=== PATIENT | female | born 1965 | race Caucasian/White ===

== ENCOUNTER 2021-02-27 | Inpatient (IN) | payer OTHER, SELFPAY ==
[2021-02-27 00:18] VITALS: BP 157/84; PULSE 86; RESP 18; TEMP 36.6; O2SAT 99
--- NOTE | 2021-02-27 00:50 | PC.ADMIT ---
55 year old female presented to [facility] via stretcher on a CV from [facility] at 00:15 for increased manic symptoms, erractic behavior and bizarre thinking. Alert, oriented to self, place and situation. Chief complaint, I'm here because there are several Dopplegangers out there to get me. Also, because I'm on a little bit of Depakote. Patient prefers to be called, Grisel at all times. She presents paranoid, hyperverbal, tangential, but pleasant with interview. 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 History of Bipolar with psychotic features and aggression. No medical history reported. is concerned with patient's behavior at home stating that his is not safe to return home as she is experiencing hallucinations. Patient has a history of impulsive behaviors such as excessive spending of money, leaving home to stay in hotels, walking the streets and having thoughts that are not realistic in nature. Denies any medication, snowden or valuables of any kind on arrival. Denies current HI/SI, intent, plan. Denies AVH. Denies pain/discomfort. Oriented to unit, food and beverages offered. Cooperative with current plan of care. Admission orders and medications initiated by provider continuous improvement director. Contracts for safety. Agrees to come to staff with needs/concerns.
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
[2021-02-27 06:54] VITALS: PULSE 73; RESP 20; TEMP 36.6; O2SAT 98
--- NOTE | 2021-02-27 08:20 | PHA.MEDREC ---
Pharmacy Consult ? Medication Reconciliation Nursing has completed the medication reconciliation and Pharmacy has reviewed the medications.
[2021-02-27 09:36] VITALS: BP 107/62; PULSE 68; RESP 14; TEMP 36.4; O2SAT 98
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
--- NOTE | 2021-02-27 11:05 | PC.NURSE ---
pt was assisted to make a phone call to [facility]. message left.
--- NOTE | 2021-02-27 11:07 | PC.NURSE ---
does not want flu shot.
[2021-02-27 18:00] VITALS: BP 118/74; PULSE 68; RESP 16; TEMP 35.8; O2SAT 99
[2021-02-27] MEDS: Divalproex Sodium ER 500 MG TAB.ER.24H PO (19:38)
[2021-02-27] MEDS: HaloperidoL 1 MG TABLET 2 MG PO (19:39)
[2021-02-27] MEDS: traZODone HCL 25 MG HALFTAB PO (19:42)
--- NOTE | 2021-02-27 22:41 | PC.NURSE ---
Pt reported feeling angry. Pt requested personal space. Staff let pt into a group room and offered her a stress object. Pt destroyed the stress ball.
[2021-02-28] MEDS: Acetaminophen 325 MG TABLET 650 MG PO (00:56)
[2021-02-28] MEDS: HaloperidoL 1 MG TABLET PO ×2 (01:19→18:30)
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
[2021-02-28 06:00] VITALS: BP 127/87; PULSE 72; RESP 18; TEMP 36.6; O2SAT 98
--- NOTE | 2021-02-28 17:44 | P.PNPSI_ITS ---
Subjective Subjective Date of Service: 02/28/21 Reason For Visit: Bipolar 1 disorder Medical Problems Affecting Mental Status: No Interim History: presents as elated. Hyperverbal and tangential and flight of ideas. for today she is, poor boundaries and intrusive. Gave medical technical writer a card with lipstick on it. She talked about many topics including racquetball, going to [place], [place] . Her main complaint was some urinary incontinence and we discussed oxybutynin dosing. Has been paranoid with her roommate. Medications just been restarted and she denied any issues or complaints around same Medication Compliance: Yes Side effects from medications: No Attending Groups: Yes Review of Systems Acute medical concerns: No Review of Systems Review of Systems unremarkable Mental Status Exam Mental Status Exam Narrative: pleasant. Intrusive. Flirtatious. Hyperverbal flight of ideas. Elated. 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 No evidence of SI or HI. Insight and judgment is limited Diagnostics Vital Signs (24Hr): Vital Signs - 24 hr 02/27/21 18:00 02/28/21 06:00 Temperature 96.4 F L 97.9 F Pulse Rate 68 72 Respiratory Rate 16 18 Blood Pressure 118/74 127/87 Pulse Oximetry 99 98 Medications Medications Current Medications Acetaminophen (Acetaminophen 325 Mg Tablet) 650 mg PO Q6H PRN PRN Reason: Headache/Pain Mild Scale (1-3) Last Admin: 02/28/21 00:56 Dose: 650 mg Documented by: Al Hydroxide/Mg Hydroxide (Magnesium Hydrox/Alum Hydrox 30 Ml Oral.Susp) 30 ml PO Q6H PRN PRN Reason: Heartburn/Nausea Divalproex Sodium (Divalproex Sodium Er 250 Mg Tab.Er.24h) 750 mg PO BEDTIME YAHAIRA Haloperidol (Haloperidol 1 Mg Tablet) 2 mg PO BEDTIME YAHAIRA Last Admin: 02/27/21 19:39 Dose: 2 mg Documented by: Haloperidol (Haloperidol 1 Mg Tablet) 1 mg PO Q4H PRN PRN Reason: agitation or psychosis Last Admin: 02/28/21 01:19 Dose: 1 mg Documented by: Lorazepam (Lorazepam 0.5 Mg Tablet) 0.5 mg PO Q8H PRN PRN Reason: anxiety Magnesium Hydroxide (Milk Of Magnesia 30 Ml Oral.Susp) 30 ml PO DAILY PRN PRN Reason: Constipation Oxybutynin Chloride (Oxybutynin Chloride Er 5 Mg Tab.Er.24) 15 mg PO DAILY YAHAIRA Trazodone HCl (Trazodone Hcl 25 Mg Halftab) 25 mg PO BEDTIME PRN PRN Reason: Insomnia Last Admin: 02/27/21 19:42 Dose: 25 mg Documented by: Allergies Allergies Allergy/AdvReac Type Severity Reaction Status Date / Time hydroxyzine [From Vistaril] Allergy Unknown unknown- Verified 02/26/21 23:54 [facility] risperidone [From Risperdal] Allergy Unknown unknown- Verified 02/26/21 23:54 [facility] ziprasidone [From Geodon] Allergy Unknown unknown- Verified 02/26/21 23:54 [facility] Assessment & Plan Assessment & Plan (1) Bipolar I disorder with tonya: Status: Acute Code(s): F31.10 - Bipolar disorder, current episode manic without psychotic features, unspecified Assessment and Plan: IMPRESSION: Patient is a 55-year-old female with history of bipolar disorder who presents after called 911 for patient in the face of going off her meds for the past month and a half and becoming dysregulated and disorganized. Patient is manic, dancing around, transitioning from overly friendly to suspicious and with pressured speech and paranoid ideations that people are dopple gangers. Patient's present and says patient decompensated after going off her medications a month and half ago. He confirms that medications and doses of both Depakote and Haldol. Patient is willing to restart her medications PLAN: Patient on CV Q 15 minutes checks Depakote 5 ER 500 mg q.h.s. tonight and then increase to 750 mg at bedtime which is her home dose Haldol 2 mg at bedtime(home dose) Oxybutynin Director Of Market Intelligence reviewed labs from emergence room that sent patient: -CBC, LFTs, electrolytes, BUN creatinine: all WNL -will schedule follow-up labs for Depakote level 02/28/2021: No changes to current plan is just restarted on medications. There will be a Depakote level and likely adjustment to higher dose at bedtime as detailed above I spent minutes with the patient and/or on the patient floor today, greater than?50% of which was spent counseling/coordinating care. Reason for contiued inpatient stay Substantial Risk for: inability to function
[2021-02-28 18:00] VITALS: BP 142/77; PULSE 84; RESP 16; TEMP 36.6; O2SAT 99
[2021-02-28] MEDS: LORazepam 0.5 MG TABLET PO (18:30)
[2021-02-28] MEDS: Divalproex Sodium ER 250 MG TAB.ER.24H 750 MG PO (20:20)
[2021-02-28] MEDS: HaloperidoL 1 MG TABLET 2 MG PO (20:20)
[2021-03-01 06:00] VITALS: BP 120/88; PULSE 78; RESP 18; TEMP 36.3; O2SAT 97
--- NOTE | 2021-03-01 12:25 | HO.PSYCHPN ---
Subjective Subjective Date of Service: 03/01/21 Reason For Visit: Bipolar 1 disorder Medical Problems Affecting Mental Status: No Interim History: Pleasant today. Is slightly less intrusive and flirtatious today. Speech less pressured. More organized. Sleep better. Still appears elated. Reports he is now back to calling herself Deann.. Reports that her has been supportive and she feels less scared and does not feel that there are people out to kill her people in person meeting each other. Thankful for increased oxybutynin and reports this has been helpful. just been restarted and she denied any issues or complaints around same Medication Compliance: Yes Side effects from medications: No Attending Groups: Yes Review of Systems Acute medical concerns: No Review of Systems Review of Systems unremarkable Mental Status Exam Mental Status Exam Narrative: Pleasant today. Is slightly less intrusive and flirtatious today. Speech less pressured. More organized. Still appears elated. No evidence of SI or HI. Insight and judgment improving Diagnostics Vital Signs (24Hr): Vital Signs - 24 hr 02/28/21 18:00 03/01/21 06:00 Temperature 97.8 F 97.4 F Pulse Rate 84 78 Respiratory Rate 16 18 Blood Pressure 142/77 H 120/88 Pulse Oximetry 99 97 Medications Medications Current Medications Acetaminophen (Acetaminophen 325 Mg Tablet) 650 mg PO Q6H PRN PRN Reason: Headache/Pain Mild Scale (1-3) Last Admin: 02/28/21 00:56 Dose: 650 mg Documented by: Al Hydroxide/Mg Hydroxide (Magnesium Hydrox/Alum Hydrox 30 Ml Oral.Susp) 30 ml PO Q6H PRN PRN Reason: Heartburn/Nausea Divalproex Sodium (Divalproex Sodium Er 250 Mg Tab.Er.24h) 750 mg PO BEDTIME YAHAIRA Last Admin: 02/28/21 20:20 Dose: 750 mg Documented by: Haloperidol (Haloperidol 1 Mg Tablet) 2 mg PO BEDTIME YAHAIRA Last Admin: 02/28/21 20:20 Dose: 2 mg Documented by: Haloperidol (Haloperidol 1 Mg Tablet) 1 mg PO Q4H PRN PRN Reason: agitation or psychosis Last Admin: 02/28/21 18:30 Dose: 1 mg Documented by: Lorazepam (Lorazepam 0.5 Mg Tablet) 0.5 mg PO Q8H PRN PRN Reason: anxiety Last Admin: 02/28/21 18:30 Dose: 0.5 mg Documented by: Magnesium Hydroxide (Milk Of Magnesia 30 Ml Oral.Susp) 30 ml PO DAILY PRN PRN Reason: Constipation Oxybutynin Chloride (Oxybutynin Chloride Er 5 Mg Tab.Er.24) 15 mg PO DAILY YAHAIRA Last Admin: 03/01/21 08:42 Dose: 15 mg Documented by: Trazodone HCl (Trazodone Hcl 25 Mg Halftab) 25 mg PO BEDTIME PRN PRN Reason: Insomnia Last Admin: 02/27/21 19:42 Dose: 25 mg Documented by: Allergies Allergies Allergy/AdvReac Type Severity Reaction Status Date / Time hydroxyzine [From Vistaril] Allergy Unknown unknown- Verified 02/26/21 23:54 [facility] risperidone [From Risperdal] Allergy Unknown unknown- Verified 02/26/21 23:54 [facility] ziprasidone [From Geodon] Allergy Unknown unknown- Verified 02/26/21 23:54 [facility] Assessment & Plan Assessment & Plan (1) Bipolar I disorder with tonya: Status: Acute Code(s): F31.10 - Bipolar disorder, current episode manic without psychotic features, unspecified Assessment and Plan: IMPRESSION: Patient is a 55-year-old female with history of bipolar disorder who presents after called 911 for patient in the face of going off her meds for the past month and a half and becoming dysregulated and disorganized. Patient is manic, dancing around, transitioning from overly friendly to suspicious and with pressured speech and paranoid ideations that people are dopple gangers. Patient's present and says patient decompensated after going off her medications a month and half ago. He confirms that medications and doses of both Depakote and Haldol. Patient is willing to restart her medications PLAN: Patient on CV Q 15 minutes checks Depakote 5 ER 500 mg q.h.s. tonight and then increase to 750 mg at bedtime which is her home dose Haldol 2 mg at bedtime(home dose) Oxybutynin Operator Coating Furnace reviewed labs from emergence room that sent patient: -CBC, LFTs, electrolytes, BUN creatinine: all WNL -will schedule follow-up labs for Depakote level 03/01/2021: No changes to current plan is just restarted on medications- showing some improvement. There will be a Depakote level and may be adjusting to higher dose at bedtime as detailed above I spent minutes with the patient and/or on the patient floor today, greater than?50% of which was spent counseling/coordinating care. Reason for contiued inpatient stay Substantial Risk for: inability to function and rapid decompensation
[2021-03-01 17:18] VITALS: BP 128/73; PULSE 80; RESP 16; TEMP 36.9; O2SAT 99
[2021-03-01] MEDS: Divalproex Sodium ER 250 MG TAB.ER.24H 750 MG PO (19:45)
[2021-03-01] MEDS: HaloperidoL 1 MG TABLET 2 MG PO (19:45)
[2021-03-01] MEDS: LORazepam 0.5 MG TABLET PO (21:10)
[2021-03-02 06:00] VITALS: BP 114/75; PULSE 94; TEMP 36.4; O2SAT 97
--- NOTE | 2021-03-02 12:01 | HO.PSYCHPN ---
Subjective Subjective Date of Service: 03/02/21 Reason For Visit: Bipolar 1 disorder Interim History: pt reports that she's doing well and back to her normal self. She says she's sleeping well and would like to dc tomorrow. She reports that she is no longer concerned about Dopplegangers, which was a prominent, paranoid delusion on admission. She also volunteers that when she first came in she was a little weird.. and apologized for her behaviors. Patient said the past few weeks have been stressful as she and are in process of moving to [place] and that her had an [place] recently. She says she went off her meds last month because she does not believe that medications will heal the root cause of [her] mental illness. She says she knows she needs medications now, but thinks that she will likely be able to go off them in the future and cites that her was once schizophrenic on medications, but that this resolved and he has not needed meds for 15 years. Pt also talks about the healing that comes through Nikolas as a way to resolve bipolar; she agrees that this would be a miracle however and says i know i need medications now and agrees to continue taking medications. She denies any SI or HI. She again says she wants to dc tomorrow but is willing to have her weigh in. of note, pt remains mildly manic, dancing in the hallway, but easily redirected. Mental Status Exam Mental Status Exam Narrative: Pt is alert and oriented; behavior is still a little animated but less so; overly friendly but not intrusive; cooperative; dressed in casual attire, appropriate; adequate hygiene and appropriately groomed; mood is described as good; affect appropriate; eye contact appropriate; Speech not pressured, regular rate, volume, prosody; no psychomotor agitation; thought process is linear and goal oriented; Thought content is on discharge; mildly grandiose; no delusional content or paranoid ideations; denies any SI/HI; no AVH. Patients insight and judgment are impaired but improved. Diagnostics Vital Signs (24Hr): Vital Signs - 24 hr 03/01/21 17:18 03/02/21 06:00 Temperature 98.5 F 97.6 F Pulse Rate 80 94 Respiratory Rate 16 Blood Pressure 128/73 114/75 Pulse Oximetry 99 97 Medications Medications Current Medications Acetaminophen (Acetaminophen 325 Mg Tablet) 650 mg PO Q6H PRN PRN Reason: Headache/Pain Mild Scale (1-3) Last Admin: 02/28/21 00:56 Dose: 650 mg Documented by: Al Hydroxide/Mg Hydroxide (Magnesium Hydrox/Alum Hydrox 30 Ml Oral.Susp) 30 ml PO Q6H PRN PRN Reason: Heartburn/Nausea Divalproex Sodium (Divalproex Sodium Er 500 Mg Tab.Er.24h) 1,000 mg PO BEDTIME YAHAIRA Haloperidol (Haloperidol 1 Mg Tablet) 2 mg PO BEDTIME YAHAIRA Last Admin: 03/01/21 19:45 Dose: 2 mg Documented by: Haloperidol (Haloperidol 1 Mg Tablet) 1 mg PO Q4H PRN PRN Reason: agitation or psychosis Last Admin: 02/28/21 18:30 Dose: 1 mg Documented by: Lorazepam (Lorazepam 0.5 Mg Tablet) 0.5 mg PO Q8H PRN PRN Reason: anxiety Last Admin: 03/01/21 21:10 Dose: 0.5 mg Documented by: Magnesium Hydroxide (Milk Of Magnesia 30 Ml Oral.Susp) 30 ml PO DAILY PRN PRN Reason: Constipation Oxybutynin Chloride (Oxybutynin Chloride Er 5 Mg Tab.Er.24) 15 mg PO DAILY YAHAIRA Last Admin: 03/02/21 08:15 Dose: 15 mg Documented by: Trazodone HCl (Trazodone Hcl 25 Mg Halftab) 25 mg PO BEDTIME PRN PRN Reason: Insomnia Last Admin: 02/27/21 19:42 Dose: 25 mg Documented by: Allergies Allergies Allergy/AdvReac Type Severity Reaction Status Date / Time hydroxyzine [From Vistaril] Allergy Unknown unknown- Verified 02/26/21 23:54 [facility] risperidone [From Risperdal] Allergy Unknown unknown- Verified 02/26/21 23:54 [facility] ziprasidone [From Geodon] Allergy Unknown unknown- Verified 02/26/21 23:54 [facility] Assessment & Plan Assessment & Plan (1) Bipolar I disorder with tonya: Status: Acute Code(s): F31.10 - Bipolar disorder, current episode manic without psychotic features, unspecified Assessment and Plan: IMPRESSION: Patient is a 55-year-old female with history of bipolar disorder who presents after called 911 for patient in the face of going off her meds for the past month and a half and becoming dysregulated and disorganized. Patient is manic, dancing around, transitioning from overly friendly to suspicious and with pressured speech and paranoid ideations that people are dopple gangers. Patient's present and says patient decompensated after going off her medications a month and half ago. He confirms that medications and doses of both Depakote and Haldol. pt improved on depakote and Haldol; remains hypomanic. She denies SI/HI and behaviors are safe. Insight and judgment are improved, however she is not at baseline according to and her insight remains impaired as she is ambivalent about her need for medications. Will include . PLAN: Patient on CV Q 15 minutes checks Depakote ER 750 mg q.h.s. Haldol 2 mg at bedtime(home dose) Oxybutynin Stock Parts Inspector reviewed labs from emergence room that sent patient: -CBC, LFTs, electrolytes, BUN creatinine: all WNL -Depakote level pending I spent minutes with the patient and/or on the patient floor today, greater than?50% of which was spent counseling/coordinating care. Reason for contiued inpatient stay Substantial Risk for: med/psych decompensation
[2021-03-02] MEDS: LORazepam 0.5 MG TABLET PO (22:00)
[2021-03-02] MEDS: HaloperidoL 1 MG TABLET 2 MG PO (22:00)
[2021-03-02] MEDS: Divalproex Sodium ER 250 MG TAB.ER.24H 750 MG PO (22:01)
[2021-03-02] MEDS: HaloperidoL 1 MG TABLET PO (23:38)
[2021-03-03] MEDS: HaloperidoL 1 MG TABLET PO ×2 (03:05→23:33)
--- NOTE | 2021-03-03 03:05 | PC.NURSE ---
Patient is awake at 3am requesting Haldol for a negative voice in my head. and it helps me sleep. Patient is noted to have yelled out twice earlier in the evening while sleeping.
[2021-03-03 06:00] VITALS: BP 120/76; PULSE 120; RESP 18; TEMP 36.3; O2SAT 95
[2021-03-03 08:42] LABS: Ammonia 32 umol/L (13-55)
[2021-03-03 09:16] LABS: Alanine Aminotransferase 20 U/L (0-31); Albumin Level 4.2 g/dL (3.5-5.0); Alkaline Phosphatase 88 U/L (39-117); Aspartate Amino Transferase 20 U/L (5-31); Bilirubin Direct 0.2 mg/dL (0.0-0.5); Bilirubin Total 0.4 mg/dL (0.0-1.0); Total Protein 6.5 g/dL (6.5-8.0)
[2021-03-03 09:30] LABS: Valproate 56.3 mcg/mL (50.0-100.0)
--- NOTE | 2021-03-03 09:40 | PM.PSYDC ---
DS: Providers Provider Date of Service: 03/05/21 Date of admission: 02/26/21 23:43 Date of discharge: 03/05/21 Primary care physician: Unknown Physician Attending physician on admission: Dio Quinn Consults: 02/27/21 09:51 Consult to Hospitalist Routine Consulting Provider: Hospitalist Reason For Exam: admission physical 03/02/21 09:58 Consult to Hospitalist Routine Consulting Provider: Hospitalist Reason For Exam: admission physical (pt admitted on 02/27/21) Attending physician on discharge: Dio Quinn DS: Diagnosis Discharge Diagnosis (1) Bipolar I disorder with tonya: Status: Acute DS: Medications Discharge Medications Home Medications: Home Medications Medication Instructions Recorded Confirmed oxybutynin chloride 10 mg 10 mg PO DAILY 02/26/21 02/26/21 tablet,extended release 24 hr Previous Rx's Medication Instructions Recorded divalproex 250 mg tablet,extended 750 mg PO BEDTIME 30 Days #90 tab 03/03/21 release 24 hr haloperidol 2 mg tablet 2 mg PO BEDTIME 30 Days #30 tab 03/03/21 trazodone 50 mg tablet 25 mg PO BEDTIME PRN 30 Days #15 03/03/21 tab Data Data Completed and Pending Completed studies during hospitalization [Text1]: 03/03/21 03/03/21 07:57 07:57 Total Bilirubin 0.4 Direct Bilirubin 0.2 AST 20 ALT 20 Alkaline Phosphatase 88 Ammonia 32 Total Protein 6.5 Albumin 4.2 Valproic Acid 56.3 DS: Summary Status at Discharge Functional status at discharge: independent ambulation Overall status at discharge: patient is progressing back to baseline Time Spent with Patient Time attestation: Total time spent providing and/or coordinating discharge services: Discharge Plan Discharge Patient Disposition: Home, Self-Care Discharge Diagnosis: Bipolar Type 1, recurrent, most recent episode manic, in partial remission Referrals: Physician,Unknown J [Primary Care Provider] - 1 Week Discharge Medications: New divalproex 250 mg Tablet Extended Release 24 Hr 750 mg PO BEDTIME 30 Days Qty: 90 RF: 0 Continued oxybutynin chloride 10 mg tablet extended release 24hr 10 mg PO DAILY RF: 0 haloperidol 2 mg Tablet 2 mg PO BEDTIME 30 Days Qty: 30 RF: 0 Changed trazodone 50 mg tablet 25 mg PO BEDTIME PRN (Reason: Insomnia) 30 Days Qty: 15 RF: 0 Discontinued divalproex 500 mg tablet extended release 24 hr 2 tab PO BEDTIME RF: 0 Diet: regular diet Activity on Discharge: As tolerated Stand Alone Forms: Patient Portal Discharge page Care Plan Goals: Maintain mood and safe behaviors Take medications as prescribed Practice coping skills Continue with outpatient providers and reach out to them as needed Health Concerns: Mood stability and behaviors Plan of Treatment: Follow up with your psychiatric provider and other outpatient providers regarding above concerns Take medications as prescribed Assessment: Risk assessment at time of discharge:? Patient was interviewed prior to discharge and found to be fully oriented and without any SI or HI. Patient has insight and demonstrates good judgment in terms of wanting to pursue treatment. Patient is not in imminent risk of harm to self or others and has a safety plan that includes presenting to the closest ER or calling 911 if feeling unsafe.? Patient has been observed closely by nursing and unit staff throughout admission; patient has not engaged in any behaviors that suggest dangerousness to self or others and has demonstrated appropriate behaviors and impulse control
[2021-03-03] MEDS: Magnesium Hydrox/Alum Hydrox 30 ML ORAL.SUSP PO (16:36)
--- NOTE | 2021-03-03 17:57 | P.EN_ITS ---
Event Note Date of Service: 03/03/21 Event Note: I went to [facility] for requested hospitalist consult/H+P. The patient r equested female provider. I reviewed the pt's documented trauma history and out of respect for that, will defer H+P until a female provider is available.
--- NOTE | 2021-03-03 17:57 | PM.EVENT ---
Event Note Date of Service: 03/03/21 Event Note: I went to for requested hospitalist consult/H+P. The patient requested female provider. I reviewed the pt's documented trauma history and out of respect for that, will defer H+P until a female provider is available.
[2021-03-03 18:00] VITALS: BP 132/67; PULSE 93; TEMP 37.3; O2SAT 98
--- NOTE | 2021-03-03 20:22 | P.PNPSI_ITS ---
Subjective Subjective Date of Service: 03/03/21 Reason For Visit: Bipolar 1 disorder Interim History: pt remains mildly manic; dancing in hallway, gave telegraphic typewriter operator a picture of flower with references to Nikolas. Her reports that she is still paranoid but just hiding it from staff. Pt's came to unit and encouraged pt to remain on unit another few days and increase her Depakote back to her home dose of 1000mg to which she agrees. Mental Status Exam Mental Status Exam Narrative: Pt is alert and oriented; behavior is still a little animated but less so; overly friendly but not intrusive; cooperative; dressed in casual attire, appropriate; adequate hygiene and appropriately groomed; mood is described as good; affect appropriate; eye contact appropriate; Speech not pressured, regular rate, volume, prosody; no psychomotor agitation; thought process is linear and goal oriented; Thought content is on discharge; mildly grandiose; no delusional content or paranoid ideations; denies any SI/HI; no AVH.? Patients insight and judgment are impaired but improved.? Diagnostics Vital Signs (24Hr): Vital Signs - 24 hr 03/03/21 06:00 03/03/21 18:00 Temperature 97.3 F 99.2 F Pulse Rate 120 H 93 Respiratory Rate 18 Blood Pressure 120/76 132/67 Pulse Oximetry 95 98 Labs Labs: Laboratory Results - last 48 hr 03/03/21 03/03/21 07:57 07:57 Total Bilirubin 0.4 Direct Bilirubin 0.2 AST 20 ALT 20 Alkaline Phosphatase 88 Ammonia 32 Total Protein 6.5 Albumin 4.2 Valproic Acid 56.3 Medications Medications Current Medications Acetaminophen (Acetaminophen 325 Mg Tablet) 650 mg PO Q6H PRN PRN Reason: Headache/Pain Mild Scale (1-3) Last Admin: 02/28/21 00:56 Dose: 650 mg Documented by: Al Hydroxide/Mg Hydroxide (Magnesium Hydrox/Alum Hydrox 30 Ml Oral.Susp) 30 ml PO Q6H PRN PRN Reason: Heartburn/Nausea Last Admin: 03/03/21 16:36 Dose: 30 ml Documented by: Divalproex Sodium (Divalproex Sodium Er 500 Mg Tab.Er.24h) 1,000 mg PO BEDTIME YAHAIRA Haloperidol (Haloperidol 1 Mg Tablet) 2 mg PO BEDTIME YAHAIRA Last Admin: 03/02/21 22:00 Dose: 2 mg Documented by: Haloperidol (Haloperidol 1 Mg Tablet) 1 mg PO Q4H PRN PRN Reason: agitation or psychosis Last Admin: 03/03/21 03:05 Dose: 1 mg Documented by: Lorazepam (Lorazepam 0.5 Mg Tablet) 0.5 mg PO Q8H PRN PRN Reason: anxiety Last Admin: 03/02/21 22:00 Dose: 0.5 mg Documented by: Magnesium Hydroxide (Milk Of Magnesia 30 Ml Oral.Susp) 30 ml PO DAILY PRN PRN Reason: Constipation Oxybutynin Chloride (Oxybutynin Chloride Er 5 Mg Tab.Er.24) 15 mg PO DAILY YAHAIRA Last Admin: 03/03/21 08:07 Dose: 15 mg Documented by: Trazodone HCl (Trazodone Hcl 25 Mg Halftab) 25 mg PO BEDTIME PRN PRN Reason: Insomnia Last Admin: 02/27/21 19:42 Dose: 25 mg Documented by: Allergies Allergies Allergy/AdvReac Type Severity Reaction Status Date / Time hydroxyzine [From Vistaril] Allergy Unknown unknown- Verified 02/26/21 23:54 [facility] risperidone [From Risperdal] Allergy Unknown unknown- Verified 02/26/21 23:54 [facility] ziprasidone [From Geodon] Allergy Unknown unknown- Verified 02/26/21 23:54 [facility] Assessment & Plan Assessment & Plan (1) Bipolar I disorder with tonya: Status: Acute Code(s): F31.10 - Bipolar disorder, current episode manic without psychotic features, unspecified Assessment and Plan: IMPRESSION: Patient is a 55-year-old female with history of bipolar disorder who presents after called 911 for patient in the face of going off her meds for the past month and a half and becoming dysregulated and disorganized. Patient is manic, dancing around, transitioning from overly friendly to suspicious and with pressured speech and paranoid ideations that people are dopple gangers. Patient's present and says patient decompensated after going off her medications a month and half ago. He confirms that medications an d doses of both Depakote and Haldol. pt improved on depakote and Haldol; remains hypomanic. She denies SI/HI and behaviors are safe. Insight and judgment are improved, however she is not at baseline according to and her insight remains impaired as she is ambivalent about her need for medications. however convinced pt to remain on unit and start taking home dose of depakote to whch she agreed; she says she will rescind her 3 day PLAN: Patient on CV (rescinds 3 day) Q 15 minutes checks Depakote ER 1000 mg q.h.s. Haldol 2 mg at bedtime(home dose) Oxybutynin Assembly Worker reviewed labs from emergence room that sent patient: -CBC, LFTs, electrolytes, BUN creatinine: all WNL -Depakote level pending I spent minutes with the patient and/or on the patient floor today, greater than?50% of which was spent counseling/coordinating care. Reason for contiued inpatient stay Substantial Risk for: med/psych decompensation
[2021-03-03] MEDS: traZODone HCL 25 MG HALFTAB PO (22:02)
[2021-03-03] MEDS: Divalproex Sodium ER 500 MG TAB.ER.24H 1000 MG PO (22:03)
[2021-03-03] MEDS: HaloperidoL 1 MG TABLET 2 MG PO (22:03)
[2021-03-04 06:00] VITALS: BP 134/72; PULSE 88; RESP 18; TEMP 36.2; O2SAT 98
--- NOTE | 2021-03-04 09:52 | HO.PSYCHPN ---
Subjective Subjective Date of Service: 03/04/21 Reason For Visit: Bipolar 1 disorder Interim History: Patient reports that she was very triggered last night hearing male patient's arguing and then hearing loud nursing staff which is next to her room. She said she woke up furious. However she also felt her PTSD triggered by the loud male voices. Patient also said that she was struggling either with a dream or a diluted thought that her father is in the illuminati and that she is actually the daughter of the dark Lord Lino, a character from the plastics heat welder Wars. Patient was talking in a singsong the way and gave contract technical writer another picture of a flower and then scriptures about Nikolas. Patient said she talked to her and they both agreed she should stay longer and increase Haldol. At 1st contract technical writer considered and discussed a medication for feeling excessively triggered but patient did not want to try either clonidine or prazosin; given patient's continued delusional content and her reported history that she has required higher doses of Haldol in the past, contract technical writer agreed to increase to 4 mg at bedtime. Customer Service Voice discussed risks/side effects of increased Haldol dose to which patient said she is well aware and is fine with. Patient shared that the week she got last March she had a 5 day manic episode where she thought her roommate was a Warlock; patient was still able to work during this time however was extremely paranoid about this and said it was resolved by taking higher doses of Haldol. Mental Status Exam Mental Status Exam Narrative: Pt is alert and oriented; behavior is still a little animated but less so; overly friendly but not intrusive; cooperative; dressed in casual attire, appropriate; adequate hygiene and appropriately groomed; mood is described as good; affect appropriate; eye contact appropriate; Speech a little pressured;, regular volume, prosody; some psychomotor agitation; thought process is linear and goal oriented but can be circumstantial as well; Thought content is on mildly grandiose with some continued delusional content; denies any SI/HI; denies AVH.? Patients insight and judgment are impaired (though improved from admission).? Diagnostics Vital Signs (24Hr): Vital Signs - 24 hr 03/03/21 18:00 03/04/21 06:00 Temperature 99.2 F 97.2 F Pulse Rate 93 88 Respiratory Rate 18 Blood Pressure 132/67 134/72 Pulse Oximetry 98 98 Labs Labs: Laboratory Results - last 48 hr 03/03/21 03/03/21 07:57 07:57 Total Bilirubin 0.4 Direct Bilirubin 0.2 AST 20 ALT 20 Alkaline Phosphatase 88 Ammonia 32 Total Protein 6.5 Albumin 4.2 Valproic Acid 56.3 Medications Medications Current Medications Acetaminophen (Acetaminophen 325 Mg Tablet) 650 mg PO Q6H PRN PRN Reason: Headache/Pain Mild Scale (1-3) Last Admin: 02/28/21 00:56 Dose: 650 mg Documented by: Al Hydroxide/Mg Hydroxide (Magnesium Hydrox/Alum Hydrox 30 Ml Oral.Susp) 30 ml PO Q6H PRN PRN Reason: Heartburn/Nausea Last Admin: 03/03/21 16:36 Dose: 30 ml Documented by: Divalproex Sodium (Divalproex Sodium Er 500 Mg Tab.Er.24h) 1,000 mg PO BEDTIME YAHAIRA Last Admin: 03/03/21 22:03 Dose: 1,000 mg Documented by: Haloperidol (Haloperidol 1 Mg Tablet) 2 mg PO BEDTIME YAHAIRA Last Admin: 03/03/21 22:03 Dose: 2 mg Documented by: Haloperidol (Haloperidol 1 Mg Tablet) 1 mg PO Q4H PRN PRN Reason: agitation or psychosis Last Admin: 03/03/21 23:33 Dose: 1 mg Documented by: Magnesium Hydroxide (Milk Of Magnesia 30 Ml Oral.Susp) 30 ml PO DAILY PRN PRN Reason: Constipation Oxybutynin Chloride (Oxybutynin Chloride Er 5 Mg Tab.Er.24) 20 mg PO DAILY YAHAIRA Last Admin: 03/04/21 08:06 Dose: 20 mg Documented by: Trazodone HCl (Trazodone Hcl 25 Mg Halftab) 25 mg PO BEDTIME PRN PRN Reason: Insomnia Last Admin: 03/03/21 22:02 Dose: 25 mg Documented by: Allergies Allergies Allergy/AdvReac Type Severity Reaction Status Date / Time hydroxyzine [From Vistaril] Allergy Unknown unknown- Verified 02/26/21 23:54 [facility] risperidone [From Risperdal] Allergy Unknown unknown- Verified 02/26/21 23:54 [facility] ziprasidone [From Geodon] Allergy Unknown unknown- Verified 02/26/21 23:54 [facility] Assessment & Plan Assessment & Plan (1) Bipolar I disorder with otnya: Status: Acute Code(s): F31.10 - Bipolar disorder, current episode manic without psychotic features, unspecified Assessment and Plan: IMPRESSION: Patient is a 55-year-old female with history of bipolar disorder who presents after called 911 for patient in the face of going off her meds for the past month and a half and becoming dysregulated and disorganized. Patient is manic, dancing around, transitioning from overly friendly to suspicious and with pressured speech and paranoid ideations that people are dopple gangers. Patient's present and says patient decompensated after going off her medications a month and half ago. He confirms that medications and doses of both Depakote and Haldol. pt improved on depakote and Haldol; remains hypomanic. She denies SI/HI and behaviors are safe. Insight and judgment are improved, however she is not at baseline according to and her insight remains impaired as she is ambivalent about her need for medications. however convinced pt to remain on unit and start taking home dose of depakote to whch she agreed; she says she will rescind her 3 day -patient continues to have remaining paranoid delusions and asked for increase in Haldol 4 mg at bedtime to which contract technical writer agreed. Patient says she has been on this in higher doses before when needed. PLAN: Patient on CV Q 15 minutes checks Depakote ER 1000 mg q.h.s. INCREASED to Haldol 4 mg at bedtime(home dose) Oxybutynin 20mg (increased since pt says needs higher dose if on depakote 1000mg to which verified) Customer Service Voice reviewed labs from emergence room that sent patient: -CBC, LFTs, electrolytes, BUN creatinine: all WNL -Depakote level pending I spent minutes with the patient and/or on the patient floor today, greater than?50% of which was spent counseling/coordinating care. Reason for contiued inpatient stay Substantial Risk for: rapid decompensation
[2021-03-04] MEDS: Acetaminophen 325 MG TABLET 650 MG PO (17:38)
[2021-03-04 18:00] VITALS: BP 128/82; PULSE 98; RESP 16; TEMP 36.4; O2SAT 98
[2021-03-04] MEDS: HaloperidoL 1 MG TABLET 4 MG PO (19:45)
[2021-03-04] MEDS: Divalproex Sodium ER 500 MG TAB.ER.24H 1000 MG PO (19:45)
[2021-03-04] MEDS: traZODone HCL 50 MG TABLET PO (20:33)
--- NOTE | 2021-03-04 22:56 | PC.NURSE ---
Pt alert and confused, VSS, C/O bruising in Right upper arm and swelling in Right feet. Pt encouraged to see provider in the morning.
[2021-03-04] MEDS: Magnesium Hydrox/Alum Hydrox 30 ML ORAL.SUSP PO (23:59)
[2021-03-05] MEDS: HaloperidoL 1 MG TABLET PO (00:02)
--- NOTE | 2021-03-05 09:49 | HO.PSYCHPN ---
Subjective Subjective Date of Service: 03/05/21 Reason For Visit: Bipolar 1 disorder Interim History: Patient reports Haldol increased dose has helped. She remains mildly manic, singing her sentences instead of just talking them, speaking in various foreign languages and continuing to draw health science writer pictures. Patient is religiously occupied and actively trying to convert health science writer to [employer]. Patient said she woke up last night around midnight, ate a bunch of M&Ms and acted silly in the hallway. Then she says she went back to bed Mental Status Exam Mental Status Exam Narrative: ?Pt is alert and oriented; behavior is still a little animated but less so; overly friendly but not intrusive; cooperative; dressed in casual attire, appropriate; adequate hygiene and appropriately groomed; mood is described as good; affect appropriate; eye contact appropriate; Speech a little pressured;, regular volume, prosody; some psychomotor agitation; thought process is linear and goal oriented but can be circumstantial as well; Thought content is mildly grandiose with some continued delusional content; denies any SI/HI; denies AVH.? Patients insight and judgment are impaired (though improved from admission).? Diagnostics Vital Signs (24Hr): Vital Signs - 24 hr 03/04/21 18:00 Temperature 97.6 F Pulse Rate 98 Respiratory Rate 16 Blood Pressure 128/82 Pulse Oximetry 98 Medications Medications Current Medications Acetaminophen (Acetaminophen 325 Mg Tablet) 650 mg PO Q6H PRN PRN Reason: Headache/Pain Mild Scale (1-3) Last Admin: 03/04/21 17:38 Dose: 650 mg Documented by: Al Hydroxide/Mg Hydroxide (Magnesium Hydrox/Alum Hydrox 30 Ml Oral.Susp) 30 ml PO Q6H PRN PRN Reason: Heartburn/Nausea Last Admin: 03/04/21 23:59 Dose: 30 ml Documented by: Divalproex Sodium (Divalproex Sodium Er 500 Mg Tab.Er.24h) 1,000 mg PO BEDTIME YAHAIRA Last Admin: 03/04/21 19:45 Dose: 1,000 mg Documented by: Haloperidol (Haloperidol 1 Mg Tablet) 1 mg PO Q4H PRN PRN Reason: agitation or psychosis Last Admin: 03/05/21 00:02 Dose: 1 mg Documented by: Haloperidol (Haloperidol 1 Mg Tablet) 4 mg PO BEDTIME YAHAIRA Last Admin: 03/04/21 19:45 Dose: 4 mg Documented by: Magnesium Hydroxide (Milk Of Magnesia 30 Ml Oral.Susp) 30 ml PO DAILY PRN PRN Reason: Constipation Oxybutynin Chloride (Oxybutynin Chloride Er 5 Mg Tab.Er.24) 20 mg PO DAILY YAHAIRA Last Admin: 03/05/21 08:21 Dose: 20 mg Documented by: Trazodone HCl (Trazodone Hcl 50 Mg Tablet) 50 mg PO BEDTIME PRN PRN Reason: Insomnia Last Admin: 03/04/21 20:33 Dose: 50 mg Documented by: Allergies Allergies Allergy/AdvReac Type Severity Reaction Status Date / Time hydroxyzine [From Vistaril] Allergy Unknown unknown- Verified 02/26/21 23:54 [facility] risperidone [From Risperdal] Allergy Unknown unknown- Verified 02/26/21 23:54 [facility] ziprasidone [From Geodon] Allergy Unknown unknown- Verified 02/26/21 23:54 [facility] Assessment & Plan Assessment & Plan (1) Bipolar I disorder with tonya: Status: Acute Code(s): F31.10 - Bipolar disorder, current episode manic without psychotic features, unspecified Assessment and Plan: IMPRESSION: Patient is a 55-year-old female with history of bipolar disorder who presents after called 911 for patient in the face of going off her meds for the past month and a half and becoming dysregulated and disorganized. Patient is manic, dancing around, transitioning from overly friendly to suspicious and with pressured speech and paranoid ideations that people are dopple gangers. Patient's present and says patient decompensated after going off her medications a month and half ago. He confirms that medications and doses of both Depakote and Haldol. pt improved on depakote and Haldol; remains hypomanic. She denies SI/HI and behaviors are safe. Insight and judgment are improved, however she is not at baseline according to and her insight remains impaired as she is ambivalent about her need for medications. however convinced pt to remain on unit and start taking home dose of depakote to whch she agreed; she says she will rescind her 3 day -patient continues to have remaining paranoid delusions and asked for increase in Haldol 4 mg at bedtime to which health science writer agreed. Patient says she has been on this in higher doses before when needed. PLAN: Patient on CV Q 15 minutes checks Depakote ER 1000 mg q.h.s. Continue Haldol 4 mg at bedtime(home dose) Oxybutynin 20mg (increased since pt says needs higher dose if on depakote 1000mg to which verified) Scarfing Machine Operator reviewed labs from emergence room that sent patient: -CBC, LFTs, electrolytes, BUN creatinine: all WNL -Depakote level pending I spent minutes with the patient and/or on the patient floor today, greater than?50% of which was spent counseling/coordinating care. Reason for contiued inpatient stay Substantial Risk for: med/psych decompensation
--- NOTE | 2021-03-05 13:46 | PC.NURSE ---
pt refused hospitalist consult with Dr. Zhang on 03/05/2021 at 1340.
--- NOTE | 2021-03-05 14:32 | P.EN_ITS ---
Event Note Date of Service: 03/05/21 Event Note: Went to see patient at for hospital consult for H&P, patient de clined to be seen by medical provider. Please call us for any acute medical issues.
--- NOTE | 2021-03-05 15:43 | PM.PSYDC ---
DS: Providers Provider Date of Service: 03/05/21 Date of admission: 02/26/21 23:43 Date of discharge: 03/05/21 Primary care physician: Unknown Physician Attending physician on admission: Dio Quinn Consults: 02/27/21 09:51 Consult to Hospitalist Routine Consulting Provider: Hospitalist Reason For Exam: admission physical 03/02/21 09:58 Consult to Hospitalist Routine Consulting Provider: Hospitalist Reason For Exam: admission physical (pt admitted on 02/27/21) Attending physician on discharge: Dio Quinn DS: Diagnosis Discharge Diagnosis (1) Bipolar I disorder with tonya: Status: Chronic DS: Medications Discharge Medications Home Medications: Previous Rx's Medication Instructions Recorded divalproex 500 mg tablet,extended 1,000 mg PO DAILY 60 Days #120 tab 03/05/21 release 24 hr (Depakote ER) haloperidol 2 mg tablet 4 mg PO BEDTIME 60 Days #120 tab 03/05/21 oxybutynin chloride 10 mg 20 mg PO DAILY 60 Days #120 tab 03/05/21 tablet,extended release 24 hr trazodone 50 mg tablet 25 mg PO BEDTIME PRN 60 Days #30 03/05/21 tab Mental Status Exam Mental Status Exam Narrative: ?Pt is alert and oriented; behavior is still a little animated but less so and not intrusive; cooperative; dressed in casual appropriate attire; adequate hygiene and appropriately groomed; mood is described as good; affect appropriate; eye contact appropriate; Speech a little pressured;, regular volume, prosody; no psychomotor agitation; thought process is linear, logical and goal oriented, though at times, also circumstantial; Thought content is on discharging to see her and on staying stable; no delusional content expressed; denies any SI/HI; denies AVH.? Patients insight and judgment are intact. Data Data Completed and Pending Completed studies during hospitalization [Text1]: 03/03/21 03/03/21 07:57 07:57 Total Bilirubin 0.4 Direct Bilirubin 0.2 AST 20 ALT 20 Alkaline Phosphatase 88 Ammonia 32 Total Protein 6.5 Albumin 4.2 Valproic Acid 56.3 DS: Summary Hospital Course Hospital Course: IMPRESSION: Patient is a 55-year-old female with history of bipolar disorder who presents after called 911 for patient in the face of going off her meds for the past month and a half and becoming dysregulated and disorganized.? Patient is manic, dancing around, transitioning from overly friendly to suspicious and with? pressured speech and paranoid ideations that people are dopple gangers.? Patient's present and says patient decompensated after going off her medications a month and half ago.? He confirms that medications and doses of both Depakote and Haldol. Hospital course: pt improved on depakote and Haldol; she remained hypomanic but her behaviors or overall in control and her insight and judgment significantly improved. She continued to deny any SI/HI. She put in a 3 day notice however was willing to rescind it to further stabilize on Depakote during which time she asked for her Haldol to be increased saying that in the past she had been on a higher dose and done well. Patient continued to stabilize and while she could be intermittently exuberant she overall remained in good behavioral and impulse control. Patient denied SI/HI throughout her whole admission. Her insight continued to improve and she no longer had any delusional thinking. Patient's was involved in a planning and agreed that she was heading towards her baseline. Patient was was future oriented, demonstrating both good insight and judgment regarding her illness and medication with plans to continue taking her medication, even asking for a 2 month supply since she was soon moving to [place] with her . The day before her planned discharge, patient's , while visiting developed chest pain and went to the emergency room, diagnosed with an IL. Patient requests discharge that day in order to be with him at the hospital. She was not in imminent risk of harm to self or others and her request for discharge honored. Patient agreed to get her Depakote level checked as an outpatient. Time spent discussing smoking cessation with patient: 3 to 10 minutes Status at Discharge Functional status at discharge: independent ambulation Overall status at discharge: patient is progressing back to baseline (And either very near or at baseline) Time Spent with Patient Time attestation: Total time spent providing and/or coordinating discharge services: Time spent: Greater than 30 minutes Discharge Plan Discharge Patient Disposition: Home, Self-Care Discharge Diagnosis: Bipolar Type 1, recurrent, most recent episode manic, in partial remission Referrals: [facility] [Other] - 1 Week (Walk-In) Discharge Medications: New haloperidol 2 mg tablet 4 mg PO BEDTIME 60 Days Qty: 120 RF: 0 divalproex [Depakote ER] 500 mg tablet extended release 24 hr 1,000 mg PO DAILY 60 Days Qty: 120 RF: 0 trazodone 50 mg tablet 25 mg PO BEDTIME PRN (Reason: insomnia) 60 Days Qty: 30 RF: 0 oxybutynin chloride 10 mg tablet extended release 24hr 20 mg PO DAILY 60 Days Qty: 120 RF: 0 haloperidol 1 mg tablet 1 mg PO DAILY PRN (Reason: anxiety) 30 Days Qty: 30 RF: 1 Discontinued oxybutynin chloride 10 mg tablet extended release 24hr 10 mg PO DAILY RF: 0 trazodone 50 mg tablet 0.5 tab PO BEDTIME PRN (Reason: Insomnia) RF: 0 haloperidol 2 mg Tablet 2 mg PO BEDTIME RF: 0 divalproex 500 mg tablet extended release 24 hr 2 tab PO BEDTIME RF: 0 Discharge Orders: Discharge Order (Routine); Ordered 03/05/21 Ordered By: Dio Quinn Diet: regular diet Activity on Discharge: As tolerated Stand Alone Forms: Patient Portal Discharge page Other Ambulatory Orders: Ammonia (Routine) Timeframe: 1 Day Facility: [facility] - Location: Laboratory Ordered By: Dio Quinn Liver Panel (Routine) Timeframe: 1 Day Facility: [facility] - Location: Laboratory Ordered By: Dio Quinn Valproate (Routine) Timeframe: 1 Day Facility: [facility] - Location: Laboratory Ordered By: Dio Quinn Care Plan Goals: Maintain mood and safe behaviors Take medications as prescribed Practice coping skills Continue with outpatient providers and reach out to them as needed Health Concerns: Mood stability and behaviors Plan of Treatment: Follow up with your psychiatric provider and other outpatient providers regarding above concerns Take medications as prescribed Assessment: Risk assessment at time of discharge:? Patient was interviewed prior to discharge and found to be fully oriented and without any SI or HI. Patient has insight and demonstrates good judgment in terms of wanting to pursue treatment. Patient is not in imminent risk of harm to self or others and has a safety plan that includes presenting to the closest ER or calling 911 if feeling unsafe.? Patient has been observed closely by nursing and unit staff throughout admission; patient has not engaged in any behaviors that suggest dangerousness to self or others and has demonstrated appropriate behaviors and impulse control Discharge Date/Time: 03/05/21 16:24
--- NOTE | 2021-06-03 16:48 | PM.EVENT ---
Event Note Date of Service: 06/03/21 Event Note: Patient called asking for refill. Patient moved to [place] with her post discharge. She says that she has a psychiatric prescriber already established but the 1st appointment is pending for August 05 and she needs bridge medication until then. Patient reports she asked her PCP who declined. Patient says that she started getting a little manic on her discharge medications and so for the past 2 weeks, started taking an additional Depakote ER 250 mg from some leftover tabs she still had. She also started taking most of her Haldol PRNs daily the combination of which she reports stabilized her. Radiosonde Operator also talked with patient's Bob who is supportive and knowledgeable about her illness and was closely involved during her admission to [place], frequently communicating with both his and this real estate underwriter. Her corroborates that she is doing well and that taking the increased dose has been helpful; also that she has an appointment coming up for August 05 but needs bridge medication. Patient is asking for Depakote, Haldol and oxybutynin. Radiosonde Operator reviewed history and labs from her past admission and at Depakote ER 1000 mg her Depakote level was at the low end of therapeutic window leaving much room for increased dosing and making an increase in Depakote of 250 mg very unlikely to become supratherapeutic. Radiosonde Operator discussed this with patient who says she has been on up to 2000 mg of Depakote in the past. Patient and both agree to find a walk-in clinic in [place] that takes their insurance so that real estate underwriter can order labs for Depakote level and LFTs. Thus, real estate underwriter agrees to refill bridge medication; patient is working hard to stay stable and has been on these medications for years; although real estate underwriter cannot assess patient in-person, she is logical, linear and organized in her speech and supported by her . It is real estate underwriter's opinion that the benefits of writing refill prescriptions far outweigh the potential risk.
== END 2021-03-05 16:24 | disposition home or self-care (01) | DRG 753 ==
PROVIDERS: Admitting Provider Psychiatry & Neurology Psychiatry; Visit Provider Psychiatry & Neurology Psychiatry
DX: F31.10 Bipolar disorder, current episode manic without psychotic features, unspecified (principal); Z91.14 Patient's other noncompliance with medication regimen; Z79.899 Other long term (current) drug therapy
CPT/HCPCS: 36415; 80076; 80164; 82140